=== PATIENT | female | born 1990 | race African-American/Black ===

== ENCOUNTER 2020-09-15 10:00 | Inpatient (IN) | payer OTHER ==
[2020-09-15 11:08] LABS: BASO % 0.3 % (0-2.0); EOS % 0.9 % (0-4.5); HEMATOCRIT 34.9 % (32.4-45.2); HEMOGLOBIN 11.8 GM/dL (10.7-15.3); LYMPH % 14.9 % (8-40); MCH 31.8 pg (25.7-33.7); MCHC 33.9 g/dl (32.0-36.0); MEAN CELL VOLUME 93.6 fl (80-96); MEAN PLT VOLUME 9.4 fl (7.5-11.1); MONO % 8.6 % (3.8-10.2); NEUT % 75.3 % (42.8-82.8); PLATELET COUNT 162 K/MM3 (134-434); RBC 3.73 M/mm3 (3.60-5.2); WHITE BLOOD COUNT 6.9 K/mm3 (4.0-10.0)
[2020-09-15 11:15] LABS: INR 0.94 (0.83-1.09); PROTHROMBIN TIME (PATIENT) 11.6 SEC (9.7-13.0)
[2020-09-15 11:18] LABS: ACTIVATED PTT 27.9 SECONDS (25.2-36.5)
[2020-09-15 11:19] VITALS: BMI 30.2
[2020-09-15 11:46] LABS: POTASSIUM 3.7 mmol/L (3.5-5.1)
[2020-09-15 11:47] LABS: CALCIUM 8.6 mg/dL (8.5-10.1)
[2020-09-15 11:48] LABS: BLOOD UREA NITROGEN 6.9 mg/dL (7-18)
[2020-09-15 11:51] LABS: CREATININE 0.4 mg/dL (0.55-1.3)
[2020-09-15] MEDS ORDERED: CITRIC ACID/SODIUM CITRATE 30 ML UNIT-DOSE CUP PO ONE (14:27)
[2020-09-15] MEDS ORDERED: DINOPROSTONE 10 MG VAGINAL SUPPOSITORY VG ONE (14:28)
[2020-09-15] MEDS ORDERED: ELECTROLYTE-148 SOLN 1,000 ML IV SCH (14:30)
[2020-09-15] MEDS ORDERED: BUTORPHANOL TARTRATE 1 MG/ML VIAL IVPUSH PRN (21:27)
[2020-09-15] MEDS ORDERED: OXYTOCIN 30 UNITS in 0.9% NS 30 UNIT/500 ML INFUS.BAG IVPB SCH (21:30)
[2020-09-15] MEDS ORDERED: BUTORPHANOL TARTRATE 2 MG/ML VIAL ONE (23:54)
[2020-09-16] MEDS ORDERED: METHYLERGONOVINE MALEATE 0.2 MG/1 ML AMP IM PRN (05:38)
[2020-09-16] MEDS ORDERED: BISACODYL 10 MG SUPP.RECT PR PRN (05:38)
[2020-09-16] MEDS ORDERED: WITCH HAZEL 50% (TUCKS) 40 PAD/JAR PAD TP PRN (05:38)
[2020-09-16] MEDS ORDERED: BENZOCAINE 28 GM HEMORRHOIDAL OINTMENT RC PRN (05:38)
[2020-09-16] MEDS ORDERED: BENZOCAINE 20% 57 GM BOTTLE TP PRN (05:38)
[2020-09-16] MEDS ORDERED: PCA PUMP NR ONE (06:56)
[2020-09-16] MEDS ORDERED: FENTANYL/BUPIVACAINE/NS/PF - PCEA - 50 ML DISP.SYRIN EP ONE (06:57)
[2020-09-16] MEDS ORDERED: NALOXONE HCL 0.4 MG/ML VIAL IVPUSH PRN (07:04)
[2020-09-16] MEDS ORDERED: LIDO 2%/EPI 1:200000 PRESRVFRE (20 ML SDVIAL) ONE (07:06)
[2020-09-16] MEDS ORDERED: FENTANYL/BUPIVACAINE/NS/PF - PCEA - 50 ML DISP.SYRIN EP SCH ×2 (07:15→08:19)
[2020-09-16] MEDS ORDERED: OXYTOCIN 20 UNITS in 0.9% NS 20 UNIT/1,000 ML INFUS.BAG IV ONE (08:33)
[2020-09-16] MEDS ORDERED: OXYTOCIN 20 UNITS in 0.9% NS 20 UNIT/1,000 ML INFUS.BAG IV SCH (09:30)
[2020-09-16 09:56] LABS: CORD BASE EXCESS -1.9 mmol/L (0-2); CORD HCO3 24.9 mmHg (20-29); CORD PCO2 49.8 mmHg (30-78); CORD pH 7.317 (7.14-7.44)
[2020-09-16] MEDS: ACETAMINOPHEN 325 MG TABLET (FP) PO PRN (15:39)
[2020-09-16] MEDS: IBUPROFEN 600 MG TABLET (FP) PO PRN (15:39)
[2020-09-17] MEDS: ACETAMINOPHEN 325 MG TABLET (FP) PO PRN ×2 (08:31→15:11)
[2020-09-17] MEDS: IBUPROFEN 600 MG TABLET (FP) PO PRN ×2 (08:31→15:10)
[2020-09-17 09:11] LABS: BASO % 0.3 % (0-2.0); EOS % 0.6 % (0-4.5); LYMPH % 14.8 % (8-40); MCH 31.2 pg (25.7-33.7); MCHC 33.2 g/dl (32.0-36.0); MEAN CELL VOLUME 93.8 fl (80-96); MEAN PLT VOLUME 10.4 fl (7.5-11.1); MONO % 8.3 % (3.8-10.2); PLATELET COUNT 162 K/MM3 (134-434); RBC 3.84 M/mm3 (3.60-5.2); RDW 13.1 % (11.6-15.6)
[2020-09-18 09:09] VITALS: BP 94/59; PULSE 80; TEMP 98
== END 2020-09-18 14:05 | disposition home or self-care (01) | DRG 560 ==
LOC: JLDR 10:00 → J3W 09-16 11:02
PROVIDERS: ADMIT Obstetrics & Gynecology; ATTEND Obstetrics & Gynecology
PROC: 10E0XZZ Delivery of Products of Conception, External Approach (ICD-10-PCS; principal; 2020-09-16)
PROC: 3E0P7VZ Introduction of Hormone into Female Reproductive, Via Natural or Artificial Opening (ICD-10-PCS; 2020-09-16)
DX: O48.0 Post-term pregnancy (principal); Z3A.40 40 weeks gestation of pregnancy; Z37.0 Single live birth
CPT/HCPCS: 36415; 36600; 59409; 80048; 82803; 85025; 85610; 85730; 86780; 86850; 86900; 86901

== ENCOUNTER 2022-12-24 07:50 | Inpatient (IN) | payer OTHER ==
[2022-12-24] MEDS ORDERED: oxyCODONE HCL 5 MG TABLET PO PRN (08:30)
[2022-12-24] MEDS ORDERED: BENZOCAINE 28 GM HEMORRHOIDAL OINTMENT TP PRN (08:30)
[2022-12-24] MEDS ORDERED: BISACODYL 10 MG SUPP.RECT RC PRN (08:30)
[2022-12-24] MEDS ORDERED: BENZOCAINE 20% 57 GM BOTTLE TP PRN (08:30)
[2022-12-24] MEDS ORDERED: OXYTOCIN 20 UNITS in 0.9% NS 20 UNIT/1,000 ML INFUS.BAG IV SCH (08:30)
[2022-12-24] MEDS ORDERED: METHYLERGONOVINE MALEATE 0.2 MG/1 ML AMP IM PRN (08:30)
[2022-12-24] MEDS ORDERED: ACETAMINOPHEN 325 MG TABLET (FP) PO PRN (08:30)
[2022-12-24] MEDS ORDERED: WITCH HAZEL 50% (TUCKS) 40 PAD/JAR PAD TP PRN (08:30)
[2022-12-24 09:15] VITALS: BMI 27.4
[2022-12-24] MEDS: IBUPROFEN 600 MG TABLET (FP) PO PRN ×2 (11:19→19:14)
[2022-12-24 11:44] LABS: HEMATOCRIT 35.5 % (32.4-45.2); HEMOGLOBIN 12.5 GM/dL (10.7-15.3); MCH 31.9 pg (25.7-33.7); MCHC 35.3 g/dl (32.0-36.0); MEAN CELL VOLUME 90.3 fl (80-96); MEAN PLT VOLUME 10.8 fl (7.5-11.1); PLATELET COUNT 164 10^3/uL (134-434); RBC 3.94 M/mm3 (3.60-5.2); RDW 13.1 % (11.6-15.6); WHITE BLOOD COUNT 13.4 K/mm3 (4.0-10.0)
[2022-12-24 11:53] LABS: PROTHROMBIN TIME (PATIENT) 11.6 SEC (9.7-13.0)
[2022-12-24 11:56] LABS: ACTIVATED PTT 28.4 SECONDS (25.2-36.5)
[2022-12-24 12:03] LABS: CALCIUM 9.3 mg/dL (8.5-10.1)
[2022-12-24 12:04] LABS: BLOOD UREA NITROGEN 8.2 mg/dL (7-18)
[2022-12-24 12:07] LABS: CREATININE 0.5 mg/dL (0.55-1.3)
[2022-12-24 13:22] LABS: ANISOCYTOSIS 0; HELMET CELLS 0; HOWELL-JOLLY BODIES 0; MACROCYTOSIS 0; OVALOCYTE 0; ROULEAU 0; SICKELED CELLS 0; TARGET CELLS 0; TEAR DROP CELLS 0; TOXIC GRANULATION 0
[2022-12-24 13:47] LABS: HIV INTERPRETATION NEGATIVE (NEGATIVE)
[2022-12-25 08:39] LABS: BASO % 0.4 % (0-2.0); EOS % 2.1 % (0-4.5); HEMATOCRIT 34.9 % (32.4-45.2); HEMOGLOBIN 12.3 GM/dL (10.7-15.3); LYMPH % 22.5 % (8-40); MCH 31.6 pg (25.7-33.7); MCHC 35.3 g/dl (32.0-36.0); MEAN CELL VOLUME 89.5 fl (80-96); MEAN PLT VOLUME 10.5 fl (7.5-11.1); MONO % 6.8 % (3.8-10.2); NEUT % 68.2 % (42.8-82.8); PLATELET COUNT 158 10^3/uL (134-434); RDW 13.1 % (11.6-15.6); WHITE BLOOD COUNT 10.2 K/mm3 (4.0-10.0)
[2022-12-25] MEDS: IBUPROFEN 600 MG TABLET (FP) PO PRN (09:44)
[2022-12-25] MEDS ORDERED: SENNOSIDES/DOCUSATE COMBO (SENNA PLUS) TABLET (UD) PO PRN (22:00)
[2022-12-25 22:32] VITALS: TEMP 97.9
[2022-12-26] MEDS: IBUPROFEN 600 MG TABLET (FP) PO PRN ×2 (02:30→09:50)
[2022-12-26 08:48] VITALS: BP 99/64; PULSE 80; RESP 18
== END 2022-12-26 12:50 | disposition home or self-care (01) | DRG 541 ==
LOC: JLDR 07:50 → J3W 09:50
PROVIDERS: ADMIT Obstetrics & Gynecology; ATTEND Obstetrics & Gynecology
PROC: 10D17Z9 Manual Extraction of Products of Conception, Retained, Via Natural or Artificial Opening (ICD-10-PCS; principal; 2022-12-24)
PROC: 10E0XZZ Delivery of Products of Conception, External Approach (ICD-10-PCS; 2022-12-24)
DX: O72.0 Third-stage hemorrhage (principal); Z39.0 Encounter for care and examination of mother immediately after delivery; Z37.0 Single live birth; Z3A.40 40 weeks gestation of pregnancy
CPT/HCPCS: 36415; 59409; 80048; 85025; 85610; 85730; 86780; 86850; 86900; 86901; 87389; C9803-CS; U0003; U0005